=== PATIENT | female | born 1995 | race Caucasian/White ===

== ENCOUNTER 2023-09-04 18:32 | Emergency (ER) | payer BC ==
[2023-09-04 18:54] VITALS: TEMP 97.6
[2023-09-04 20:14] LABS: Absolute Neutrophil Ct (ANC) 4.49 x10^3/uL (1.56-6.13); BASOPHIL % 0.3 % (0.1-1.2); Basophil (Absolute #) 0.02 x10^3/uL (0.01-0.08); Eosinophil % 3.6 % (0.7-5.8); Eosinophil (Absolute #) 0.21 x10^3/uL (0.04-0.36); Hematocrit 25.1 % (34.1-44.9); Hemoglobin 8.3 g/dL (11.2-15.7); IMMATURE GRAN # 0.06 x10^3u/L (0.001-0.031); Lymphocyte (Absolute #) 0.61 x10^3/uL (1.18-3.74); Lymphocytes % 10.5 % (19.3-51.7); Mean Cell Volume 88.1 fL (79.4-94.8); Mean Corpuscular Hemoglobin 29.1 pg (25.6-32.2); Mean Corpuscular Hgb Concent. 33.1 g/dL (32.2-35.5); Mean Platelet Volume 8.9 fL (9.4-12.3); Monocyte (Absolute #) 0.43 x10^3/uL (0.24-0.86); Monocytes % 7.4 % (4.7-12.5); Neutrophil % 77.2 % (34.0-71.1); Platelet Count 335 x10^3/uL (182-369); Red Blood Count 2.85 x10^6/uL (3.93-5.22); Red Cell Distribution Width 13.4 % (11.7-14.4); White Blood Count 5.8 x10^3/uL (3.98-10.04)
[2023-09-04 20:28] LABS: ALBUMIN 2.8 g/dL (3.5-5.0); ANION GAP 7.5 MEQ/L (5-15); BILIRUBIN,TOTAL 0.3 mg/dL (0.2-1.3); Calcium 8.3 mg/dL (8.4-10.2); Creatinine 1 0.59 mg/dL (0.52-1.04); Potassium 3.8 mmol/L (3.5-5.1); Total Protein 5.4 g/dL (6.3-8.2)
[2023-09-04 20:34] LABS: MAGNESIUM 1.8 mg/dL (1.6-2.3); Uric Acid 4.7 mg/dL (2.6-6.0)
--- NOTE | 2023-09-04 20:53 | ERPHSYRPT ---
- History of Present Illness Time Seen by Provider: 09/04/23 18:37 Source: patient Exam Limitations: no limitations Patient Subjective Stated Complaint: C/O BLE swelling. Patient gave to a baby on 08/29/23 and was discharged from [facility] on Friday, . Patient indicates that she noticed the swelling on 09/01/23 and it has just become progressively worse. Has a follow-up with her OB on 09/08/23. Triage Nursing Assessment: Patient ambulated back to ER without difficulties. She is alert and oriented. BLE are swollen, tight, shiny. No SOB. Physician History: 28-year-old with a day 6 at [facility] presented in the ER with increasing bilateral lower extremity swelling for the last 3 days with tightening of lower legs. Patient reports dull aching pain causing difficulty ambulation at times. Patient denies any history of preeclampsia and had minimal swelling lower extremity during . Denies any chest pain palpitations or shortness of breath. Allergies/Adverse Reactions: No Known Drug Allergies Allergy (Verified 09/04/23 18:41) Hx Tetanus, Diphtheria Vaccination/Date Given: Yes Immunizations Up to Date: Yes Travel Risk - International Travel Have you traveled outside of the country in past 3 weeks: No - Emerging Infectious Disease Are you exhibiting symptoms associated with any current EIDs: No - Review of Systems Constitutional: No Symptoms Eyes: No Symptoms Respiratory: No Symptoms Cardiac: No Symptoms, Edema Abdominal/Gastrointestinal: No Symptoms Genitourinary Symptoms: No Symptoms Musculoskeletal: Myalgias Skin: No Symptoms Neurological: No Symptoms Psychological: No Symptoms Endocrine: No Symptoms Hematologic/Lymphatic: No Symptoms Immunological/Allergic: No Symptoms - Past Medical History Pertinent Past Medical History: No - Past Surgical History Past Surgical History: Yes Female Surgical History: Section - Female History Hx Now: No - Social History Smoking Status: Never smoker Exposure to second hand smoke: No Drug Use: none - Social Determinants of Health Will the patient participate in the screening: Yes Do you worry about a steady place to live?: No Do you have any problems with any of the following?: No known problems In the past 12 months,have you had to go without utilities?: No Transportation Issues: No Has anyone in your support network made you feel unsafe?: No Have you or anyone in your house had to go without enough: No - Nursing Vital Signs Nursing Vital Signs: Initial Vital Signs Temperature 97.6 F 09/04/23 18:42 Pulse Rate 76 09/04/23 18:42 Respiratory Rate 18 09/04/23 18:42 Blood Pressure 140/65 09/04/23 18:42 O2 Sat by Pulse Oximetry 99 09/04/23 18:42 Pain Scale Pain Intensity 2 - Physical Exam General Appearance: no apparent distress, alert Eye Exam: PERRL/EOMI Ears, Nose, Throat Exam: normal ENT inspection, pharynx normal Neck Exam: normal inspection, full range of motion Respiratory Exam: normal breath sounds, lungs clear Cardiovascular Exam: regular rate/rhythm, normal heart sounds, edema (2+ bilateral pitting edema) Gastrointestinal/Abdomen Exam: soft, normal bowel sounds, tenderness Back Exam: normal inspection, normal range of motion Extremity Exam: normal inspection Neurologic Exam: alert, oriented x 3, cooperative, international marketing intern II-XII nml as tested Skin Exam: normal color SpO2 Interpretation: normal SpO2: 97 O2 Delivery: Room Air Ordered Tests: Active Orders 24 hr Category Date Time Status CHEST 1 VIEW (PORTABLE) Stat Exams 09/04/23 22:28 Taken VENOUS BILATERAL EXTREMITY [US] Stat Exams 09/04/23 20:02 Taken BNPII [NT PRO BNPII] Stat Lab 09/04/23 19:55 Completed CBC W DIFF Stat Lab 09/04/23 20:10 Completed CMP Stat Lab 09/04/23 20:10 Completed CULTURE,URINE Stat Lab 09/04/23 20:39 Received MAGNESIUM Stat Lab 09/04/23 20:10 Completed UA W/RFX UR CULTURE Stat Lab 09/04/23 20:39 Completed Uric Acid Stat Lab 09/04/23 20:10 Completed Lab/Rad Data: Laboratory Result Diagrams 09/04/23 20:10 09/04/23 20:10 Laboratory Results 09/04/23 09/04/23 09/04/23 Range/Units 20:39 20:10 20:10 WBC (3.98-10.04) x10^3/uL RBC (3.93-5.22) x10^6/uL Hgb (11.2-15.7) g/dL Hct (34.1-44.9) % MCV (79.4-94.8) fL MCH (25.6-32.2) pg MCHC (32.2-35.5) g/dL RDW (11.7-14.4) % Plt Count (182-369) x10^3/uL MPV (9.4-12.3) fL Gran % (34.0-71.1) % Immature Gran % (Auto) (0.001-0.429) % Nucleat RBC Rel Count (0.00-0.2) % Eos # (Auto) (0.04-0.36) x10^3/uL Immature Gran # (Auto) (0.001-0.031) x10^3u/L Absolute Lymphs (auto) (1.18-3.74) x10^3/uL Absolute Monos (auto) (0.24-0.86) x10^3/uL Absolute Nucleated RBC (0.00-0.012) x10^3u/L Lymphocytes % (19.3-51.7) % Monocytes % (4.7-12.5) % Eosinophils % (0.7-5.8) % Basophils % (0.1-1.2) % Absolute Granulocytes (1.56-6.13) x10^3/uL Basophils # (0.01-0.08) x10^3/uL Sodium 138 (135-145) mmol/L Potassium 3.8 (3.5-5.1) mmol/L Chloride 109 H (98-107) mmol/L Carbon Dioxide 25 (22-30) mmol/L Anion Gap 7.5 (5-15) MEQ/L BUN 11 (7-17) mg/dL Creatinine 0.59 (0.52-1.04) mg/dL Estimated GFR 125.0 ML/MIN Glucose 88 (74-106) mg/dL Uric Acid 4.7 (2.6-6.0) mg/dL Calcium 8.3 L (8.4-10.2) mg/dL Magnesium 1.8 (1.6-2.3) mg/dL Total Bilirubin 0.30 (0.2-1.3) mg/dL AST 23 (14-36) U/L ALT 22 (0-35) U/L Alkaline Phosphatase 116 (38-126) U/L NT-Pro-B Natriuret Pep (<300) pg/mL Serum Total Protein 5.4 L (6.3-8.2) g/dL Albumin 2.8 L (3.5-5.0) g/dL Urine Color Yellow (Yellow) Urine Appearance Clear (Clear) Urine pH 7.0 (4.6-8.0) Ur Specific [place] <=1.005 (1.005-1.030) Urine Protein Negative (Negative) Urine Glucose (UA) Negative (Negative) mg/dL Urine Ketones Negative (Negative) Urine Blood Large A (Negative) Urine Nitrite Negative (Negative) Urine Bilirubin Negative (Negative) Urine Urobilinogen 0.2 (0.2) mg/dL Ur Leukocyte Esterase Small A (Negative) U Hyaline Cast (Auto) NONE SEEN (0-2) /LPF Urine Microscopic RBC 0-2 (0-5) /HPF Urine Microscopic WBC 6-10 A (0-5) /HPF Ur Epithelial Cells Few (None Seen) /HPF Urine Bacteria None Seen (None Seen) /HPF Urine Culture Reflexed YES (NO) 09/04/23 09/04/23 Range/Units 20:10 19:55 WBC 5.8 (3.98-10.04) x10^3/uL RBC 2.85 L (3.93-5.22) x10^6/uL Hgb 8.3 L (11.2-15.7) g/dL Hct 25.1 L (34.1-44.9) % MCV 88.1 (79.4-94.8) fL MCH 29.1 (25.6-32.2) pg MCHC 33.1 (32.2-35.5) g/dL RDW 13.4 (11.7-14.4) % Plt Count 335 (182-369) x10^3/uL MPV 8.9 L (9.4-12.3) fL Gran % 77.2 H (34.0-71.1) % Immature Gran % (Auto) 1.0 H (0.001-0.429) % Nucleat RBC Rel Count 0.0 (0.00-0.2) % Eos # (Auto) 0.21 (0.04-0.36) x10^3/uL Immature Gran # (Auto) 0.06 H (0.001-0.031) x10^3u/L Absolute Lymphs (auto) 0.61 L (1.18-3.74) x10^3/uL Absolute Monos (auto) 0.43 (0.24-0.86) x10^3/uL Absolute Nucleated RBC 0.00 (0.00-0.012) x10^3u/L Lymphocytes % 10.5 L (19.3-51.7) % Monocytes % 7.4 (4.7-12.5) % Eosinophils % 3.6 (0.7-5.8) % Basophils % 0.3 (0.1-1.2) % Absolute Granulocytes 4.49 (1.56-6.13) x10^3/uL Basophils # 0.02 (0.01-0.08) x10^3/uL Sodium (135-145) mmol/L Potassium (3.5-5.1) mmol/L Chloride (98-107) mmol/L Carbon Dioxide (22-30) mmol/L Anion Gap (5-15) MEQ/L BUN (7-17) mg/dL Creatinine (0.52-1.04) mg/dL Estimated GFR ML/MIN Glucose (74-106) mg/dL Uric Acid (2.6-6.0) mg/dL Calcium (8.4-10.2) mg/dL Magnesium (1.6-2.3) mg/dL Total Bilirubin (0.2-1.3) mg/dL AST (14-36) U/L ALT (0-35) U/L Alkaline Phosphatase (38-126) U/L NT-Pro-B Natriuret Pep 562 (<300) pg/mL Serum Total Protein (6.3-8.2) g/dL Albumin (3.5-5.0) g/dL Urine Color (Yellow) Urine Appearance (Clear) Urine pH (4.6-8.0) Ur Specific [place] (1.005-1.030) Urine Protein (Negative) Urine Glucose (UA) (Negative) mg/dL Urine Ketones (Negative) Urine Blood (Negative) Urine Nitrite (Negative) Urine Bilirubin (Negative) Urine Urobilinogen (0.2) mg/dL Ur Leukocyte Esterase (Negative) U Hyaline Cast (Auto) (0-2) /LPF Urine Microscopic RBC (0-5) /HPF Urine Microscopic WBC (0-5) /HPF Ur Epithelial Cells (None Seen) /HPF Urine Bacteria (None Seen) /HPF Urine Culture Reflexed (NO) - Progress Progress: unchanged Progress Note: 09/04/23 22:30 28-year-old day 6 is evaluated for bilateral lower extremity swellings without any chest pain difficulty breathing. She has no headache, visual disturbance, abdominal pain. She has stable vitals. Workup showed normal white count, hemoglobin of 8.3, patient did have more than usual bleeding while per her. I do not have any comparison. Chemistries fairly unremarkable, normal uric acid and liver enzymes. No protein in the urine. No signs of preeclampsia. Patient chest x-ray showed bilateral congestion with some blunting of costophrenic angle/effusion. I have given her Lasix. History combination of anemia, some element of cardiomyopathy. Patient has negative DVT scan per preliminary report and both limbs. I would give her Lasix for few days, recommended elevation, compression stockings and outpatient follow-up. Discussed signs symptoms of worsening needing return to ER which she seems understanding. 09/04/23 22:35 Counseled pt/family regarding: lab results, diagnosis, rad results Medical Desision Making - Diagnostic Testing Diagnostic test were ordered, analyzed, and reviewed by me: Yes Radiological Interpretation: Interpreted by me, Reviewed by me, Teleradiologist Report - Risk of complications The pt has a mod risk of morbidity or mortality based on: Need for prescription drug management - Departure Departure Disposition: Home Clinical Impression: Leg edema, Anemia Condition: Stable Critical Care Time: No Referrals: DOCTOR,NO FAMILY [Primary Care Provider] - Follow up with PCP 1 day Instructions: Dependent Edema (DC) Additional Instructions: Take low-salt diet, elevation, use compression stocking, take Lasix as recommended. Outpatient follow-up with primary care and OB for reevaluation. Return to ER for increasing swelling or if having chest pain palpitations/shortness of breath/abdominal pain, blurry vision or headache etc. continue with vitamins. Prescriptions: Furosemide 20 mg [Lasix 20 mg] 20 mg PO DAILY 5 Days #5 tablet
[2023-09-04 21:08] LABS: Appearance Clear (Clear); Bacteria None Seen /HPF (None Seen); Bilirubin Negative (Negative); Blood Large (Negative); Glucose, Urine Negative (Negative); Hyaline Casts NONE SEEN /LPF (0-2); Ketones Negative (Negative); Leukocyte Esterase Small (Negative); Nitrite Negative (Negative); Protein,Urine Dip Negative (Negative); RBC 0-2 /HPF (0-5); Specific Gravity <=1.005 (1.005-1.030); Urobilinogen 0.2 mg/dL (0.2)
[2023-09-04 21:10] LABS: ADD URINE CULTURE? YES (NO); Epithelial Cells Few /HPF (None Seen)
[2023-09-04 22:36] VITALS: O2SAT 97
[2023-09-04] MEDS: Lasix 40 MG PO ONE (23:11)
[2023-09-04 23:12] VITALS: BP 156/91; PULSE 76; RESP 17
--- NOTE | 2023-09-05 07:27 | XRAY ---
Indication: Swelling. Status post section 6 days. Two-dimensional sonogram and color Doppler imaging nature venous vessels left and right leg performed. Comparison: None No thrombus seen in the examined deep venous vessels left and right leg including greater saphenous vein. Veins demonstrate normal compressibility. Venous waveforms are normal with and without augmentation. Impression: Left and right legs negative for DVT. Comment: Preliminary report was given.
--- NOTE | 2023-09-05 07:29 | XRAY ---
Indication: Bilateral leg swelling. Status post section 6 days. Comparison: None Portable chest demonstrates small bibasilar effusions with minimal left base infiltrate/atelectasis. Heart not enlarged for AP portable technique. Bony thorax intact.
== END 2023-09-04 23:15 | disposition home or self-care (01) ==
LOC: ED 18:32
DX: R60.0 Localized edema (principal); D64.9 Anemia, unspecified
CPT/HCPCS: 36415; 71045; 80053; 81001; 83735; 83880; 84550; 85025; 87086; 93970; 99283